=== PATIENT | male | born 1955 | race Caucasian/White ===

== ENCOUNTER 2017-01-18 07:04 | Emergency (ER) | payer BC ==
[2017-01-18 07:17] VITALS: BP 129/81
--- NOTE | 2017-01-18 08:14 | RAD ---
INDICATION: Left knee pain. TECHNIQUE: 4 views of the left knee were obtained. FINDINGS: The bones are normal alignment. There is a small joint effusion present. No fracture is seen. Joint spaces appear maintained. IMPRESSION: SMALL JOINT EFFUSION.
--- NOTE | 2017-01-18 08:26 | UC ---
Lower Extremity/Ankle HPI - HPI Summary HPI Summary: GRADUAL ONSET OF KNEE PAIN X >1MONTH. NO KNOWN INJURY BUT PT DOES HAVE TO DO A LOT OF KNEELING AND SQUATTING. PAIN HAS GOTTEN PROGRESSIVELY WORSE. NO PT IS HAVING PAIN WITH WT BEARING AND MOVEMENT. BETTER WITH REST. PT ALSO DEVELOPED CHEST CONGESTION, A COUGH PRODUCTIVE OF YELLOW SPUTUM THAT INTERFERRED WITH HIS SLEEP LAST NIGHT. - History of Current Complaint Chief Complaint: UCGeneralIllness Stated Complaint: COUGH,COLD,KNEE PAIN Time Seen by Provider: 01/18/17 07:12 Hx Obtained From: Patient Onset/Duration: Gradual Onset, Lasting Weeks - 4, Still Present, Worse Since - PROGRESSIVELY Severity Initially: Moderate Severity Currently: Moderate Pain Intensity: 9 Aggravating Factor(s): Standing, Ambulation Alleviating Factor(s): Rest Able to Bear Weight: Yes - Allergies/Home Medications Allergies/Adverse Reactions: Allergies Allergy/AdvReac Type Severity Reaction Status Date / Time No Known Allergies Allergy Verified 01/18/17 07:18 Home Medications: Home Medications Ibuprofen [Advil] 400 mg PO Q8HR PRN 01/18/17 [History Confirmed 01/18/17] PMH/Surg Hx/FS Hx/Imm Hx Previously Healthy: Yes Endocrine History: Other Other Endocrine History: NEG: DM Other Cardiovascular History: NEG: HTN - Surgical History Surgical History: Yes Surgery Procedure, Year, and Place: Herniated disc L 3 & L 4 1989 - Family History Known Family History: Negative: Cardiac Disease, Hypertension, Diabetes - Social History Occupation: Employed Full-time Alcohol Use: Occasionally Substance Use Type: None Smoking Status (MU): Former Smoker Type: Cigarettes Amount Used/How Often: quit 15 years ago - Immunization History Most Recent Influenza Vaccination: Fall 2015 Review of Systems Constitutional: Negative Skin: Negative ENT: Negative Respiratory: Negative Cardiovascular: Negative Gastrointestinal: Negative Musculoskeletal: Arthralgia Neurological: Negative All Other Systems Reviewed And Are Negative: Yes Physical Exam Triage Information Reviewed: Yes Appearance: Well-Appearing, No Pain Distress, Well-Nourished Vital Signs: Initial Vital Signs Temp 98.0 F 01/18/17 07:11 Pulse 73 01/18/17 07:11 Resp 18 01/18/17 07:11 BP 129/81 01/18/17 07:11 Pulse Ox 98 01/18/17 07:11 Vital Signs Reviewed: Yes Eyes: Positive: Conjunctiva Clear. Negative: Discharge ENT: Positive: Hearing grossly normal. Negative: Muffled/hoarse voice Neck: Positive: Supple Respiratory: Positive: Lungs clear, No respiratory distress, No accessory muscle use, Expiration - PROLONGED EXPIRATION AT BL BASES Cardiovascular: Positive: RRR, No Murmur Musculoskeletal: Positive: ROM Limited @ - END POINTS OF FLEXION AND EXT. NORMAL INSPECTION EXCEPT FOR MILD SWELLING OVER MEDIAL JOINT LINE. TENDER TO PALPATION OF MCL AND MEDIAL JOINT LINE. PAIN WITH MEDIAL STRESS. POSITIVE MCMURRYS. PCL AND ACL- NO LAXITY Neurological: Positive: Alert, Muscle Tone Normal Psychological: Positive: Age Appropriate Behavior Skin Exam: Normal Skin: Positive: Other - WARM DRY NORMAL COLOR Lower Extremity Course/Dx - Differential Dx/Diagnosis Differential Diagnosis/HQI/PQRI: Arthritis, Sprain, Strain, Other - MENICUS TEAR Provider Diagnoses: POSSIBLE INTERNAL DERRANGEMENT OF THE KNEE, KNEE SPRAIN, URI , BRONCHOSPASM Discharge - Discharge Plan Condition: Stable Disposition: HOME Prescriptions: Albuterol HFA INHALER* [Ventolin HFA Inhaler*] 2 puff INH Q4H PRN #1 mdi PRN Reason: Sob/Wheezing Benzonatate CAP* [Tessalon 100 MG CAP*] 100 mg PO TID PRN #30 cap PRN Reason: Cough Naproxen TAB* [Naprosyn 250 mg TAB*] 500 mg PO BID #14 tab guaiFENesin ER TAB [Mucinex*] 600 mg PO BID PRN #1 box PRN Reason: Cough guaiFENesin/CODIEN 100MG-10MG* [Robitussin AC 100Mg-10Mg*] 5 - 10 ml PO BEDTIME PRN #100 udc MDD 10ml PRN Reason: Cough Patient Education Materials: Upper Respiratory Infection (ED), Swollen Knee Joint (ED), Knee Sprain (ED), Knee Immobilizer (ED) Forms: *Work Release Referrals: Fuentes Cui MD [Primary Care Provider] - (FOLLOW UP IN 10-14 DAYS) Arnalod Jenkins MD [Medical Doctor] - (FOLLOW UP IN 3-5 DAYS) Additional Instructions: INHALED BRONCHODILATORS: You have received a prescription for an inhaled bronchodilator -- a medication which stimulates the airways in the lung to dilate. This improves the flow of air in asthma, bronchitis, and emphysema. These medicines have some similarity to adrenaline, and can cause similar side effects: shakiness, racing heart, and a sense of nervousness. These side effects decrease with time. Contact your doctor if these side effects are severe. Do not over-use the medicine. Too-frequent use of the inhaler may make it ineffective. Call your doctor if the inhaler is not controlling your symptoms at the prescribed doses. COUGH-SUPPRESSANT & EXPECTORANT MEDICATION: You are to use a cough medication as needed for relief of symptoms. This medicine is a combination of an expectorant (to make the mucous thinner and more easily "coughed up") and a cough suppressant (to reduce the frequency of coughing). The cough-suppressant medicine is related to narcotics. You may experience mild nausea and sleepiness. Some patients who are very sensitive to narcotics may have stomach pain from this medicine. Taking the medicine with food reduces these side effects. Do not drive or work with machinery until you know how this medicine affects you. The expectorant should have no side effects. Iodine-containing expectorants (such as organidin) should not be taken by persons with active thyroid disease unless approved by your doctor. Call the doctor if you develop shortness of breath, hives, rash, itching, lightheadedness, or severe nausea and vomiting. EXPECTORANT MEDICATION: WE SENT IN A SCRIPT FOR MUCINEX SO THAT IT IS EASIER FOR YOU TO PICK THE RIGHT MED AT THE PHARMACY. HOWEVER, YOU CAN ALSO GO TO THE [facility] AND BUY PLAIN GUAIFENESIN WITHOU BINDERS OR FILLERS. An expectorant medicine has been prescribed. This type of drug makes mucous thinner, helping the sinuses, nose, and bronchial tubes to remain free of pus and mucous. Expectorants make a cough less severe and more comfortable, and help infected sinuses drain. In general, antihistamines defeat the purpose of the expectorant by making mucous thicker. They should be avoided unless specifically recommended by your physician. TESSALON PERLES: You have received a prescription for Tessalon Perles (benzonatate). This is a non-narcotic medicine for relief of cough. It usually works in about 15- 20 minutes and lasts around four hours. Tessalon Perles should be swallowed. They should not be chewed or dissolved in the mouth (this can produce temporary numbing of the mouth and choking can occur). If you develop any adverse effects such as wheezing, shortness of breath, hives, rash, itching, or lightheadedness, please return at once. Your history and exam is suspicous for possible internal derrangement of the knee. So, you will need follow up with an orthopedic provider to further evaluate your injury. ANTI-INFLAMMATORY MEDICATION: You have received a prescription for an antiinflammatory agent. This is an excellent, safe drug for pain control. In addition, it has potent antiinflammatory effects which are beneficial, especially in the treatment of injuries, arthritis, or tendonitis. It's best to take this medicine with food. Persons with ulcer disease or allergy to aspirin should notify their physician of this before taking this drug. Take the medication exactly as prescribed. Don't take additional doses unless instructed to do so by your doctor. If you develop wheezing, shortness of breath, hives, faintness, stomach pain, vomiting, or dark black stools, return for re-evaluation at once. YOUR BLOOD PRESSURE WAS ELEVATED AT THIS VISIT. PLEASE FOLLOW UP WTH YOUR PCP FOR FURTHER EVALUATION.
== END 2017-01-18 08:55 | disposition home or self-care (01) ==
LOC: UCEAST 07:04
DX: S83.92XA Sprain of unspecified site of left knee, initial encounter (principal); J06.9 Acute upper respiratory infection, unspecified; J98.01 Acute bronchospasm; X58.XXXA Exposure to other specified factors, initial encounter; Y92.9 Unspecified place or not applicable; Z11.4 Encounter for screening for human immunodeficiency virus [HIV]; Z87.891 Personal history of nicotine dependence
CPT/HCPCS: 36415; 86618; 86703; 86803; 99213; G0463

== ENCOUNTER 2017-08-24 07:03 | Emergency (ER) | payer BC ==
[2017-08-24 07:19] VITALS: BP 135/79
--- NOTE | 2017-08-24 08:17 | UC ---
Yanique Ham Rebecca, [facility] MD on 08/24/17 at 0727 . Respiratory Complaint HPI - HPI Summary HPI Summary: In Room: Pt is a 62 y/o M who presents to [facility] c/o cough since late in the day yesterday. Sx aggravated and alleviated by nothing. Additionally c/o "feeling hot," yellow rhinorrhea (since yesterday) and nasal congestion. Denies SOB, wheezing, CP, and N/V/D. 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 Prior similar episodes every time that he has to work in [employer], which he is currently doing. Was previously treated for similar symptoms a few years ago for which he was given a Dx of bronchitis and Rx for Z-arsen and an inhaler which improved symptoms, though he does not have an inhaler now. PMHx atypical PNA. MD: Previous visits for cough, congestion, sinus. Vital signs stable. No allergies. History of ulcer and shingles, taking Prilosec. Nurse's: Starting , nasal congestion and unproductive cough. Possible fever. Denies any n/v/d. Sore throat. - History of Current Complaint Chief Complaint: UCRespiratory Stated Complaint: COUGH,CONGESTED Time Seen by Provider: 08/24/17 07:16 Hx Obtained From: Patient Onset/Duration: Lasting Days - 1 day, Still Present Severity Currently: None Pain Intensity: 0 Pain Scale Used: 0-10 Numeric Aggravating Factors: Nothing Alleviating Factors: Nothing Associated Signs And Symptoms: Positive: Nasal Congestion. Negative: Wheezing Related History: Similar Episode/Dx as: - Prior similar episodes, last one a few years ago - Allergies/Home Medications Allergies/Adverse Reactions: Allergies Allergy/AdvReac Type Severity Reaction Status Date / Time No Known Allergies Allergy Verified 08/24/17 07:11 PMH/Surg Hx/FS Hx/Imm Hx - Additional Past Medical History Additional PMH: PMHx: Ulcer, shingles, atypical PNA. NEGATIVE PMHx: COPD, HTN, DM, asthma. GI/ History: Gastroesophageal Reflux - Surgical History Surgical History: Yes Surgery Procedure, Year, and Place: Herniated disc L 3 & L 4 1992;. L knee surgery 2016 - Family History Known Family History: Positive: Other - COPD (mother) Negative: Cardiac Disease, Hypertension, Diabetes - Social History Alcohol Use: Rare Substance Use Type: None Smoking Status (MU): Former Smoker Type: Cigarettes Amount Used/How Often: quit 15 years ago - Immunization History Most Recent Influenza Vaccination: Fall 2015 Review of Systems Constitutional: Other - "feeling hot" Skin: Negative Eyes: Negative ENT: Nasal Discharge - yellow, Sinus Congestion Respiratory: Cough Cardiovascular: Negative Gastrointestinal: Negative Genitourinary: Negative Motor: Negative Neurovascular: Negative Musculoskeletal: Negative Neurological: Negative Psychological: Negative All Other Systems Reviewed And Are Negative: Yes - Comments Additional Review of Systems Comments: POSITIVE: Cough, "feeling hot", yellow rhinorrhea, nasal congestion. NEGATIVE: SOB, wheezing, CP, N/V/D. Physical Exam - Summary Physical Exam Summary: Appearance: The patient is well-appearing, is in no pain distress, and is well- nourished. Eyes: Conjunctiva are clear. ENT: The hearing is grossly normal, the pharynx is normal, and the TMs are normal. There is no muffled or hoarse voice. Neck: The neck is supple and there is no lymphadenopathy. Respiratory: The chest is nontender. There is no respiratory distress.There are scattered rhonchi and an extended expiratory phase bilaterally. Cardiovascular: Heart is regular rate and rhythm. There is no murmur. Abdomen: The abdomen is soft and nontender. There is no organomegaly. Bowel sounds: present Musculoskeletal: Strength is intact. The patient moves all extremities. Neurological: The patient is alert. Psychological: The patient displays age appropriate behavior Skin: Negative for rashes. 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 He has a history of atypical PNA. Is afebrile. His lung exam is positive for bronchospasm. Diagnosis of bronchitis with bronchospasm. I will treat him with a Z-Arsen, albuterol and spacer and warm fluids. Patient has been given an antibiotic because findings on physical examination and health history. The risks and benefits of antibiotic treatment have been discussed and patient has voiced understanding of these risks including the possibility of developing clostridium difficile enterocolitis. Patient is Urgent/Emergent. BP elevated due to current condition w/o HTN in past medical history. Medications have been included in the original chart and reviewed. - Differential Dx/Diagnosis Differential Diagnosis/HQI/PQRI: Bronchitis, Other - URI, Pneumonia Provider Diagnoses: Bronchitis with bronchospasm Discharge - Sign-Out/Discharge Documenting (check all that apply): Discharge - Discharge - Discharge Plan Condition: Stable Disposition: HOME Prescriptions: Albuterol HFA INHALER* [Ventolin HFA Inhaler*] 1 - 2 puff INH Q4H #1 mdi MDD 8 Azithromycin TAB* [Zithromax TAB*] 250 mg PO DAILY #6 tab Inhaler, Assist Devices [Aerochamber Mv] 1 mis XX Q6HR #1 mis Patient Education Materials: Acute Bronchitis (ED), Bronchospasm (ED) Referrals: Fuentes Cui MD [Primary Care Provider] - Additional Instructions: WE DISCUSSED: 1. You have cough from bronchitis and dust in your work environment. This is causing both the cough and some other sounds heard in your lungs. 2. You have been treated with both an antibiotic and an inhaler and spacer. You should be getting better in 7 days. 3. Also: to deal with congestion STAND UNDER SHOWER STREAM TO LOOSEN SECRETIONS. USE A VAPORIZOR. STAY AWAY FROM ANY SMOKE OR IRRITANTS. USE SALINE NASAL SPRAY TO KEEP FLOW OF MUCOUS FROM NOSTRILS AND SINUSES. CONSIDER USING NETI POT TO HELP WITH ALLERGIES AND CONGESTION IN THE NOSE. USE THIS THREE TIMES A WEEK. YOU CAN GET THIS AT [facility] IN [place] OR [facility]. DRINK LOTS OF WARM FLUIDS USEFUL HOME REMEDIES: WARM WATER GARGLES, WITH TSP OF SALT PER 8 OUNCES OF WATER, GARGLE FOR A FEW SECONDS AND SPIT OUT; GARGLE AND SPIT OUT; EVERY THREE HOURS. AND/OR: WARM WATER OR TEA, HONEY AND LEMON; 2-3 CUPS A DAY. RE-CHECK IN 1O DAYS NEEDED. RE-CHECK SOONER IF INCREASED PAIN OR TEMPERATURE. The documentation as recorded by the Yanique de santiago Rebecca accurately reflects the service I personally performed and the decisions made by me, Deon Ferreira MD.
== END 2017-08-24 07:46 | disposition home or self-care (01) ==
LOC: UCEAST 07:03
DX: J20.9 Acute bronchitis, unspecified (principal); K21.9 Gastro-esophageal reflux disease without esophagitis; Z87.891 Personal history of nicotine dependence
CPT/HCPCS: 99212; G0463

== ENCOUNTER 2018-10-05 07:48 | Emergency (ER) | payer BC ==
--- NOTE | 2018-10-05 08:13 | UC ---
Throat Pain/Nasal Erick HPI - HPI Summary HPI Summary: 63 yo male with nasal congestion and pain "roof of the mouth" chills ?fever no cough no cp or sob - History of Current Complaint Chief Complaint: UCGeneralIllness Stated Complaint: COLD/FEVER Time Seen by Provider: 10/05/18 08:05 Hx Obtained From: Patient Severity: Mild Pain Intensity: 0 Pain Scale Used: 0-10 Numeric Cough: None Associated Signs & Symptoms: Positive: Negative - Epiglottits Risk Factors Epiglottis Risk Factors: Negative - Allergies/Home Medications Allergies/Adverse Reactions: Allergies Allergy/AdvReac Type Severity Reaction Status Date / Time No Known Allergies Allergy Verified 10/05/18 07:58 Home Medications: Home Medications Vitamin C And Zinc 10/05/18 [History] PMH/Surg Hx/FS Hx/Imm Hx Previously Healthy: Yes - Surgical History Surgical History: Yes Surgery Procedure, Year, and Place: Herniated disc L 3 & L 4 1992;. L knee surgery 2016 - Family History Known Family History: Positive: Other - COPD (mother) Negative: Cardiac Disease, Hypertension, Diabetes - Social History Alcohol Use: None Substance Use Type: None Smoking Status (MU): Former Smoker Type: Cigarettes Amount Used/How Often: quit 19 years ago - Immunization History Most Recent Influenza Vaccination: Fall 2015 Review of Systems All Other Systems Reviewed And Are Negative: Yes Constitutional: Positive: Fever - ?, Chills, Fatigue Skin: Positive: Negative Eyes: Positive: Negative ENT: Positive: Sinus Congestion Respiratory: Positive: Negative Cardiovascular: Positive: Negative Gastrointestinal: Positive: Negative Genitourinary: Positive: Negative Motor: Positive: Negative Neurovascular: Positive: Negative Musculoskeletal: Positive: Negative Neurological: Positive: Negative Psychological: Positive: Negative Physical Exam Triage Information Reviewed: Yes Appearance: Well-Appearing, No Pain Distress, Well-Nourished Vital Signs: Initial Vital Signs Temp 98.6 F 10/05/18 07:52 Pulse 64 10/05/18 07:52 Resp 16 10/05/18 07:52 BP 125/82 10/05/18 07:52 Pulse Ox 99 10/05/18 07:52 Vital Signs Reviewed: Yes Eyes: Positive: Conjunctiva Clear ENT: Positive: Hearing grossly normal, Pharyngeal erythema, Nasal congestion, TMs normal, Uvula midline - moderate uvualr edema. Negative: Nasal drainage, Tonsillar swelling, Tonsillar exudate, Trismus, Muffled voice, Hoarse voice, Dental tenderness, Sinus tenderness Neck: Positive: Supple, Nontender, No Lymphadenopathy Respiratory: Positive: Lungs clear, Normal breath sounds, No respiratory distress Cardiovascular: Positive: RRR, No Murmur Abdomen Description: Positive: Nontender Musculoskeletal: Positive: ROM Intact, No Edema Neurological: Positive: Alert Psychological Exam: Normal Skin Exam: Normal Throat Pain/Nasal Course/Dx - Differential Dx/Diagnosis Provider Diagnosis: Uvular edema, Upper respiratory infection Discharge - Sign-Out/Discharge Documenting (check all that apply): Patient Departure All imaging exams completed and their final reports reviewed: No Studies - Discharge Plan Condition: Stable Disposition: HOME Prescriptions: Azithromycin TAB* [Zithromax TAB*] 250 mg PO DAILY #6 tab predniSONE [Deltasone 20 MG TAB] 40 mg PO DAILY #10 tab Patient Education Materials: Upper Respiratory Infection (ED) Referrals: Fuentes Cui MD [Primary Care Provider] - 3 Days (if not better) - Billing Disposition and Condition Condition: STABLE Disposition: Home
[2018-10-05 08:20] VITALS: BP 125/82
== END 2018-10-05 08:20 | disposition home or self-care (01) ==
LOC: UCEAST 07:48
DX: K13.79 Other lesions of oral mucosa (principal); J06.9 Acute upper respiratory infection, unspecified; Z87.891 Personal history of nicotine dependence
CPT/HCPCS: 99212; G0463

== ENCOUNTER 2019-03-31 07:24 | Emergency (ER) | payer BC ==
[2019-03-31 07:36] VITALS: BP 120/76
--- NOTE | 2019-03-31 07:59 | UC ---
Respiratory Complaint HPI - HPI Summary HPI Summary: 12 HOURS OF COUGH AND CONGESTION. NO FEVER, ST, EAR PAIN, N/V. - History of Current Complaint Chief Complaint: UCGeneralIllness Stated Complaint: RESP ISSUE Time Seen by Provider: 03/31/19 07:38 Hx Obtained From: Patient Onset/Duration: Gradual Onset, Lasting Hours, Still Present Timing: Constant Severity Initially: Mild Severity Currently: Mild Pain Intensity: 0 Pain Scale Used: 0-10 Numeric Character: Cough: Nonproductive Aggravating Factors: Nothing Alleviating Factors: Nothing Associated Signs And Symptoms: Positive: URI, Nasal Congestion. Negative: Dyspnea, Fever, Pleuritic Chest Pain, Wheezing, Hoarseness - Allergies/Home Medications Allergies/Adverse Reactions: Allergies Allergy/AdvReac Type Severity Reaction Status Date / Time No Known Allergies Allergy Verified 03/31/19 07:31 PMH/Surg Hx/FS Hx/Imm Hx GI/ History: Gastroesophageal Reflux - Surgical History Surgical History: Yes Surgery Procedure, Year, and Place: Herniated disc L 3 & L 4 1992;. L knee surgery 2016 - Family History Known Family History: Positive: Other - COPD (mother) Negative: Cardiac Disease, Hypertension, Diabetes - Social History Alcohol Use: None Substance Use Type: None Smoking Status (MU): Former Smoker Type: Cigarettes Amount Used/How Often: quit 19 years ago - Immunization History Most Recent Influenza Vaccination: Fall 2015 Review of Systems All Other Systems Reviewed And Are Negative: Yes Constitutional: Positive: Negative ENT: Positive: Nasal Discharge Respiratory: Positive: Cough Cardiovascular: Positive: Negative Gastrointestinal: Positive: Negative Physical Exam Triage Information Reviewed: Yes Appearance: Well-Appearing, No Pain Distress, Well-Nourished Vital Signs: Initial Vital Signs Temp 98.3 F 03/31/19 07:32 Pulse 76 03/31/19 07:32 Resp 16 03/31/19 07:32 BP 120/76 03/31/19 07:32 Pulse Ox 97 03/31/19 07:32 Vital Signs Reviewed: Yes Eyes: Positive: Conjunctiva Clear ENT: Positive: Hearing grossly normal, Pharynx normal, TMs normal Neck: Positive: Supple, Nontender, No Lymphadenopathy Respiratory Exam: Normal Cardiovascular Exam: Normal Abdomen Description: Positive: Soft Musculoskeletal: Positive: No Edema Neurological: Positive: Alert Psychological: Positive: Age Appropriate Behavior Skin: Negative: Rashes Respiratory Course/Dx - Course Course Of Treatment: LIKELY VIRAL ETIOLOGY OF SYMPTOMS. PT HAS BEEN FEELING UNWELL FOR LESS THAN 24 HOURS. PT REQUESTING ABX, PREDNSIONE AND INHALER. ADVISED THERE IS NO INDICATION FOR ABX AT PRESENT. WILL GIVE PREDNISONE AND INHALER ALTHOUGH PT ADVISED THAT HIS SX WILL LIKELY GET WORSE BEFORE THEY GET BETTER REGARDLESS. - Differential Dx/Diagnosis Provider Diagnosis: Upper respiratory infection Discharge ED - Sign-Out/Discharge Documenting (check all that apply): Patient Departure All imaging exams completed and their final reports reviewed: No Studies - Discharge Plan Condition: Stable Disposition: HOME Prescriptions: Albuterol HFA INHALER* [Ventolin HFA Inhaler*] 2 puff INH Q4H PRN #1 mdi PRN Reason: Shortness Of Breath predniSONE TAB* [Deltasone TAB*] 50 mg PO DAILY #5 tab Patient Education Materials: Upper Respiratory Infection (ED) Referrals: Fuentes Cui MD [Primary Care Provider] - If Needed Additional Instructions: YOUR SYMPTOMS ARE LIKELY VIRALLY MEDIATED AND SHOULD RESOLVE ON THEIR OWN WITH TIME. NO INDICATION FOR ANTIBIOTICS AT PRESENT. REST, HYDRATE, OTC MEDS NEEDED. WILL TREAT WITH PREDNISONE AND ALBUTEROL TO HELP WITH AIRWAY INFLAMMATION. SEEK FOLLOW-UP IF YOU ARE NOT IMPROVING OVER THE NEXT 1-2 WEEKS. USE OTC AFRIN FOR NASAL CONGESTION. 2 SPRAYS IN EACH NOSTRIL TWICE DAILY NEEDED. DO NOT USE FOR MORE THAN 3-4 DAYS IN A ROW TO PREVENT DEVELOPING REBOUND CONGESTION. - Billing Disposition and Condition Condition: STABLE Disposition: Home
== END 2019-03-31 07:50 | disposition home or self-care (01) ==
LOC: UCEAST 07:24
DX: J06.9 Acute upper respiratory infection, unspecified (principal); Z87.891 Personal history of nicotine dependence
CPT/HCPCS: 99212; G0463